=== PATIENT | female | born 1980 | race Caucasian/White ===

== ENCOUNTER 2020-08-07 09:06 | Emergency (ER) | payer SELFPAY ==
[~2020-08-07] VITALS: Ht 156.2 cm; Wt 70.5 kg
[2020-08-07 09:15] VITALS: Ht 156.2 cm; Wt 70.5 kg
[2020-08-07 09:49] LABS: BASOPHILS 0.1 % (0-2); EOSINOPHILS 0.1 % (0-7); HEMATOCRIT 36.9 % (36.0-48.0); HEMOGLOBIN 11.7 g/dL (12-16); LYMPHOCYTES 11.1 % (15-50); MCH 25.1 pg (26.0-34.0); MCHC 31.8 g/dL (31.0-37.0); MCV 78.8 fL (80.0-100.0); MEAN PLATELET VOLUME 7.2 fL (7.4-10.4); MONOCYTES 5.5 % (2-11); NEUTROPHILS 83.2 % (40-80); PLATELET COUNT 299 10x3/uL (130-400); RBC 4.68 10x6/uL (4.00-5.40); RDW 15.9 % (11.5-14.5); WBC 4.7 10x3/uL (4.8-10.8)
[2020-08-07 10:03] LABS: CALC OSMOLALITY 266 mosm/kg (275-300); CALCIUM 10.1 mg/dL (8.5-10.1); CARBON DIOXIDE 22.8 mmol/L (21.0-32.0); CHLORIDE - SERUM 102 mmol/L (98-107); CREATININE - SERUM 0.7 mg/dL (0.6-1.3); GLUCOSE 124 mg/dL (74-106); POTASSIUM - SERUM 3.4 mmol/L (3.5-5.1); SODIUM 134 mmol/L (136-145); UREA NITROGEN 6 mg/dL (7-18); eGFR NON AFRICAN AMERICAN > 90 mL/min (90-120)
[2020-08-07 10:07] LABS: ALBUMIN 3.3 g/dL (3.4-5.0); ALKALINE PHOSPHATASE 78 U/L (30-120); ALT (SGPT) 12 U/L (10-68); BILIRUBIN - TOTAL 0.45 mg/dL (0.2-1.3); PROTEIN - SERUM 7.9 g/dL (6.4-8.2)
[2020-08-07] MEDS ORDERED: CEPHALEXIN500 M1 PO (11:30)
[2020-08-07] MEDS ORDERED: ULTRAM50 MG PO (11:30)
[2020-08-07] MEDS ORDERED: MUPIROCIN15 GM TOPICAL (11:30)
[2020-08-07] MEDS ORDERED: CLEOCIN HCL300 MG PO (11:30)
== END 2020-08-07 12:27 | disposition home or self-care (01) ==
LOC: D.ER 09:06
PROVIDERS: Family Medicine
DX: R22.0 Localized swelling, mass and lump, head (principal); L03.211 Cellulitis of face; I10 Essential (primary) hypertension